=== PATIENT | male | born 1960 | race Caucasian/White ===

== ENCOUNTER 2019-07-20 16:30 | Inpatient (IN) | payer BC ==
[~2019-07-20] VITALS: Ht 175.3 cm; Wt 98.9 kg
[2019-07-20 16:53] VITALS: Ht 175.3 cm; Wt 98.9 kg
[2019-07-20 17:56] LABS: BASOPHIL % 0.3 % (0-2); PLATELET COUNT 206 x10^3mcL (130-400); RED CELL DISTRIBUTION WIDTH 12.3 % (11.5-14.5)
[2019-07-20 18:04] LABS: CALCIUM 8.6 mg/dL (8.5-10.1); CARBON DIOXIDE 27.7 mmol/L (21-32); CHLORIDE SERUM 106 mmol/L (98-107); CREATININE SERUM 1.2 mg/dL (0.7-1.3); GFR1 > 60 mL/min; GLUCOSE SERUM 120 mg/dL (74-106); POTASSIUM SERUM 4.1 mmol/L (3.5-5.1); SODIUM SERUM 142 mmol/L (136-145)
[2019-07-20 18:09] LABS: ALBUMIN 3.6 g/dL (3.4-5.0); ALKALINE PHOSPHATASE 62 U/L (46-116); ALT/SGPT 66 U/L (16-63); AST/SGOT 39 U/L (15-37); BILIRUBIN TOTAL 0.46 mg/dL (0.20-1.00); TOTAL PROTEIN, SERUM 6.8 g/dL (6.4-8.2)
[2019-07-20 18:26] LABS: UA SPECIFIC GRAVITY >=1.030 (1.005-1.035); microscopic required? YES; urine erythrocyte TRACE (NEGATIVE)
[2019-07-20 20:13] LABS: CHOLESTEROL/HDL RATIO 5.5
[2019-07-20 20:22] LABS: T3 TOTAL 1.37 ng/mL
[2019-07-20 20:35] LABS: FREE T4 1.26 ng/dL (0.76-1.46); FREE THYROXINE INDEX 2.9 ug/dL (1.4-4.5); T4(THYROXINE) 9.4 ug/dL (4.7-13.3)
[2019-07-20 20:35] LABS: AMPHETAMINE QUAL UR NONE DETECTED (See below)
[2019-07-20] MEDS ORDERED: FORTAMET500 M1 PO (21:12)
[2019-07-20] MEDS ORDERED: AMARYL4 MG PO (21:12)
[2019-07-20] MEDS ORDERED: TRULICITY0.75 MG/0. SC (21:13)
[2019-07-20 21:38] VITALS: BP 129/79
[2019-07-21 06:14] VITALS: BP 116/69
[2019-07-21 06:24] LABS: BASOPHIL % 0.2 % (0-2); PLATELET COUNT 175 x10^3mcL (130-400); RED CELL DISTRIBUTION WIDTH 12.4 % (11.5-14.5)
[2019-07-21 06:44] LABS: CARBON DIOXIDE 27.5 mmol/L (21-32); CHLORIDE SERUM 106 mmol/L (98-107); CREATININE SERUM 1.1 mg/dL (0.7-1.3); GFR1 > 60 mL/min; GLUCOSE SERUM 125 mg/dL (74-106); POTASSIUM SERUM 4.3 mmol/L (3.5-5.1); SODIUM SERUM 141 mmol/L (136-145)
[2019-07-21 09:37] VITALS: BP 124/81
[2019-07-21 13:51] VITALS: BP 137/78
[2019-07-21 17:04] VITALS: BP 136/50
[2019-07-21 21:12] VITALS: BP 135/88
[2019-07-22 05:40] VITALS: BP 153/87
[2019-07-22 06:59] LABS: BASOPHIL % 0.3 % (0-2); PLATELET COUNT 171 x10^3mcL (130-400); RED CELL DISTRIBUTION WIDTH 12.2 % (11.5-14.5)
[2019-07-22 07:03] LABS: CALCIUM 8.1 mg/dL (8.5-10.1); CARBON DIOXIDE 27.1 mmol/L (21-32); CHLORIDE SERUM 105 mmol/L (98-107); CREATININE SERUM 1.1 mg/dL (0.7-1.3); GFR1 > 60 mL/min; GLUCOSE SERUM 111 mg/dL (74-106); MAGNESIUM 1.8 mg/dL (1.8-2.4); PHOSPHOROUS 2.1 mg/dL (2.5-4.9); POTASSIUM SERUM 4.1 mmol/L (3.5-5.1); SODIUM SERUM 140 mmol/L (136-145)
[2019-07-22 12:08] VITALS: BP 146/94
[2019-07-22] MEDS ORDERED: ACCU-CHEK1 EAC2 MC (12:36)
[2019-07-22] MEDS ORDERED: MOT800 PO (12:36)
[2019-07-22 13:01] VITALS: BP 146/94
== END 2019-07-22 14:02 | disposition home or self-care (01) | DRG 542 ==
LOC: ED 16:30 → DU 18:56 → MU 07-22 10:39
PROVIDERS: Emergency Medicine; ADMIT Family Medicine
DX: M48.56XA Collapsed vertebra, not elsewhere classified, lumbar region, initial encounter for fracture (principal); G93.41 Metabolic encephalopathy; E23.0 Hypopituitarism; R65.10 Systemic inflammatory response syndrome (SIRS) of non-infectious origin without acute organ dysfunction; E87.2 Acidosis; E11.649 Type 2 diabetes mellitus with hypoglycemia without coma; Z60.2 Problems related to living alone; M47.896 Other spondylosis, lumbar region; Z79.899 Other long term (current) drug therapy; Z79.84 Long term (current) use of oral hypoglycemic drugs; Z23 Encounter for immunization
CPT/HCPCS: 82962; 83880; 84439; 90732; 97110-GP; 97116-GP; 97530-GP; G0378; J1885; J7042; Q0092